=== PATIENT | male | born 1985 | race Caucasian/White ===

== ENCOUNTER 2016-12-05 16:38 | Observation (INO) | payer OTHER, MEDICAID ==
[~2016-12-05] VITALS: Ht 170.2 cm; Wt 63.9 kg
[2016-12-05] VITALS (10 sets, daily range): BP systolic 100–139; BP diastolic 73–91; PULSE 62–113; RESP 10–34; TEMP 97.1–97.7; O2SAT 95–100
[~2016-12-05 16:38] MED LIST: IBUP-232 PO
[2016-12-05] MEDS ORDERED: SODIUM CHLOR 0.9% 1000 ML INJ 1,000 ML IV ONE (16:43)
[2016-12-05] MEDS ORDERED: NALOXONE HCL 2 MG/2 ML VIAL IVP ONE (16:45)
[2016-12-05] MEDS ORDERED: SODIUM CHLORIDE 0.9% FLUSH 10 ML FLUSH IVF PRN (16:45)
--- NOTE | 2016-12-05 16:56 | PD ---
HPI Chief Complaint: OD/ Ingestion Time Seen by Provider: 16:43 Travel History International Travel<30 days: No Contact w/Intl Traveler<30days: No Traveled to known affect area: No History of Present Illness HPI 31-year-old male patient presents to the ER brought in by a friend, apparently had told the friend that he had taken heroin and cocaine, was having agonal breathing, pale, diaphoretic. He was given Narcan in the ER and is completely awake. He denies taking any medications. Modifying Factors: None Associated Signs & Symptoms: Opiate overdose Risk Factors: None PFSH Past Medical History Diabetes: No Diminished Hearing: No Past Surgical History Other Surgery: Yes (neck biopsy) Social History Alcohol Use: No Tobacco Use: Yes (1 PPD) Substance Use: No Allergies-Medications (Allergen,Severity, Reaction): Coded Allergies: No Known Allergies (Unverified , 12/05/16) Reported Meds & Prescriptions Reported Meds & Active Scripts Active No Active Prescriptions or Reported Medications Review of Systems Except as stated in HPI: all other systems reviewed are Neg Physical Exam Narrative GENERAL: Well-developed young white male patient currently in extremities, diaphoretic, abdominal respirations, pale. SKIN: Focused skin assessment warm/diaphoretic. HEAD: Atraumatic. Normocephalic. EYES: Pupils are small, equal and round and poorly reactive to light. No scleral icterus. No injection or drainage. ENT: No nasal bleeding or discharge. Mucous membranes moist but pale. NECK: Trachea midline. No JVD. CARDIOVASCULAR: Regular rate and rhythm. No murmur appreciated. RESPIRATORY: No accessory muscle use. Clear to auscultation. Breath sounds equal bilaterally. GASTROINTESTINAL: Abdomen soft, nondistended. Hepatic and splenic margins not palpable. MUSCULOSKELETAL: No obvious deformities. No clubbing. No cyanosis. No edema. NEUROLOGICAL: Lethargic, disoriented. Unable to follow commands. Slurred speech. PSYCHIATRIC: Lethargic. Data Data Last Documented VS Vital Signs Date Time Temp Pulse Resp B/P Pulse Ox O2 Delivery O2 Flow Rate FiO2 12/05/16 17:11 104 18 130/83 100 Room Air 12/05/16 16:54 97.7 Orders Electrocardiogram (12/05/16 16:43) Complete Blood Count With Diff (12/05/16 16:43) Comprehensive Metabolic Panel (12/05/16 16:43) Urinalysis - C+S If Indicated (12/05/16 16:43) Iv Access Insert/Monitor (12/05/16 16:43) Ecg Monitoring (12/05/16 16:43) Oximetry (12/05/16 16:43) Naloxone Inj (Narcan Inj) (12/05/16 16:45) Sodium Chloride 0.9% Flush (Ns Flush) (12/05/16 16:45) Sodium Chlor 0.9% 1000 Ml Inj (Ns 1000 M (12/05/16 16:43) Drug Screen, Random Urine (12/05/16 16:43) Alcohol (Ethanol) (12/05/16 16:43) Salicylates (Aspirin) (12/05/16 16:43) Tylenol (Acetaminophen) (12/05/16 16:43) Ondansetron Inj (Zofran Inj) (12/05/16 17:45) Labs Laboratory Tests Test 12/05/16 16:45 White Blood Count 11.1 TH/MM3 Red Blood Count 5.19 MIL/MM3 Hemoglobin 15.2 GM/DL Hematocrit 44.9 % Mean Corpuscular Volume 86.5 FL Mean Corpuscular Hemoglobin 29.2 PG Mean Corpuscular Hemoglobin 33.8 % Concent Red Cell Distribution Width 12.0 % Platelet Count 362 TH/MM3 Mean Platelet Volume 7.7 FL Neutrophils (%) (Auto) 50.6 % Lymphocytes (%) (Auto) 36.9 % Monocytes (%) (Auto) 10.9 % Eosinophils (%) (Auto) 1.0 % Basophils (%) (Auto) 0.6 % Neutrophils # (Auto) 5.6 TH/MM3 Lymphocytes # (Auto) 4.1 TH/MM3 Monocytes # (Auto) 1.2 TH/MM3 Eosinophils # (Auto) 0.1 TH/MM3 Basophils # (Auto) 0.1 TH/MM3 CBC Comment DIFF FINAL Differential Comment Sodium Level 143 MEQ/L Potassium Level 3.3 MEQ/L Chloride Level 107 MEQ/L Carbon Dioxide Level 29.5 MEQ/L Anion Gap 7 MEQ/L Blood Urea Nitrogen 8 MG/DL Creatinine 1.10 MG/DL Estimat Glomerular Filtration 78 ML/MIN Rate Random Glucose 208 MG/DL Calcium Level 8.1 MG/DL Total Bilirubin 0.5 MG/DL Aspartate Amino Transf 19 U/L (AST/SGOT) Alanine Aminotransferase 23 U/L (ALT/SGPT) Alkaline Phosphatase 66 U/L Total Protein 7.4 GM/DL Albumin 3.9 GM/DL Ethyl Alcohol Level LESS THAN 3 MG/DL MDM Medical Decision Making Medical Screen Exam Complete: Yes Emergency Medical Condition: Yes Medical Record Reviewed: Yes Interpretation(s) EKG shows sinus tachycardia at rate of 110 bpm with no signs of acute ST-T changes. Laboratory Tests Test 12/05/16 16:45 White Blood Count 11.1 TH/MM3 (4.0-11.0) Monocytes (%) (Auto) 10.9 % (0.0-8.0) Monocytes # (Auto) 1.2 TH/MM3 (0-0.9) Potassium Level 3.3 MEQ/L (3.5-5.1) Estimat Glomerular Filtration 78 ML/MIN (>89) Rate Random Glucose 208 MG/DL (74-106) Calcium Level 8.1 MG/DL (8.5-10.1) Differential Diagnosis Opiate overdose versus coingestions versus dysrhythmias versus dehydration Narrative Course Patient woke up right after given Narcan. He denies taking any medications or drugs. Vital signs are stable after he was given Narcan. Lab work did not show any significant metabolic issues. There are no signs of dysrhythmias. At this point, it is uncertain what patient took and my plan would be to admit the patient as an observation since Narcan is liable to run out before whenever opiate the patient took. Case is discussed with Dr. Anderson For admission. He will need to admitted to the ICU secondary to respiratory suppression possible with this overdose. Aggregate critical care time was 20 minutes. Time to perform other separately billable procedures was not included in the critical care time. My time did not include minutes spent treating any other patients simultaneously or on activities that did not directly contribute to the patient's treatment. The services I provided to this patient were to treat and/or prevent clinically significant deterioration that could result in: Respiratory failure, I provided critical care services requiring my management, as noted below: Chart data review, documentation time, medication orders and management, vital sign assessments/reviewing monitor data, ordering and reviewing lab tests, ordering and interpreting/reviewing x-rays and diagnostic studies, care of the patient and discussion of the patient with the admitting physicians. Diagnosis Primary Impression: Opiate overdose Admitting Information Admitting Physician Requests: Admit Scripts No Active Prescriptions or Reported Meds Froylan Pelyao MD Dec 05, 2016 16:56
[2016-12-05 16:59] LABS: AUTOMATED NEUTROPHIL # 5.6 TH/MM3 (1.8-7.7); BASOPHIL # 0.1 TH/MM3 (0-0.2); BASOPHIL % 0.6 % (0.0-2.0); EOSINOPHIL # 0.1 TH/MM3 (0-0.4); HEMATOCRIT 44.9 % (39.0-51.0); HEMO FLAGS DIFF FINAL; LYMPH % 36.9 % (9.0-44.0); LYMPHOCYTE # 4.1 TH/MM3 (1.0-4.8); MEAN CELL VOLUME 86.5 FL (80.0-100.0); MEAN CORPUSCULAR HEMOGLOBIN 29.2 PG (27.0-34.0); MEAN CORPUSCULAR HGB CONC 33.8 % (32.0-36.0); MONO % 10.9 % (0.0-8.0); NEUT % 50.6 % (16.0-70.0); PLATELET COUNT 362 TH/MM3 (150-450); RED BLOOD COUNT 5.19 MIL/MM3 (4.50-5.90); WHITE BLOOD COUNT 11.1 TH/MM3 (4.0-11.0)
[2016-12-05 17:11] LABS: CHLORIDE 107 MEQ/L (98-107); POTASSIUM 3.3 MEQ/L (3.5-5.1); SODIUM (NA) 143 MEQ/L (136-145)
[2016-12-05 17:16] LABS: ANION GAP 7 MEQ/L (5-15); BICARBONATE 29.5 MEQ/L (21.0-32.0); BLOOD UREA NITROGEN 8 MG/DL (7-18)
[2016-12-05 17:19] LABS: ALT (GPT) 23 U/L (12-78); AST (GOT) 19 U/L (15-37); GLOMERULAR FILTRATION RATE 78 ML/MIN (>89)
[2016-12-05 17:21] LABS: TOTAL BILIRUBIN ADULT 0.5 MG/DL (0.2-1.0)
[2016-12-05 17:22] LABS: ALKALINE PHOSPHATASE 66 U/L (45-117)
[2016-12-05] MEDS ORDERED: ONDANSETRON HCL 4 MG/2 ML VIAL IV PUSH ONE (17:45)
[2016-12-05] MEDS ORDERED: LACTULOSE SYRUP 20 GM/30 ML CUP PO PRN (18:15)
[2016-12-05] MEDS ORDERED: ONDANSETRON HCL 4 MG/2 ML VIAL IVP PRN (18:15)
[2016-12-05] MEDS ORDERED: ACETAMINOPHEN 325 MG TAB PO PRN (18:15)
[2016-12-05] MEDS ORDERED: BISACODYL 10 MG SUPP RECTAL PRN (18:15)
[2016-12-05] MEDS ORDERED: MAGNESIUM HYDROXIDE SUSP 30 ML CUP PO PRN (18:15)
[2016-12-05] MEDS ORDERED: NALOXONE HCL 0.4 MG/ML AMP IV PRN (18:15)
[2016-12-05] MEDS ORDERED: SENNOSIDES 8.6 MG TAB PO PRN (18:15)
[2016-12-05 18:37] LABS: ACETAMINOPHEN LESS THAN 2.0 MCG/ML (10.0-30.0)
[2016-12-05] MEDS: NS + KCL 20 MEQ INJ 1,000 ML IV SCH (19:42)
[2016-12-05] MEDS: DOCUSATE SODIUM 50 MG/SENNA 8.6 MG TAB PO SCH (21:00)
[2016-12-05 21:41] LABS: BLOOD, URINE NEG (NEG); GLUCOSE,URINE NEG (NEG); KETONE, URINE NEG (NEG); NITRITE,URINE NEG (NEG); PH, URINE 5.5 (5.0-8.5)
[2016-12-05 21:49] LABS: AMPHETAMINE, URINE NEG (NEG); BARBITURATES, URINE NEG (NEG); HYALINE CAST, URINE 0-2 /lpf (RARE); URINE COLOR YELLOW (YELLW/STRAW)
[2016-12-05 21:50] LABS: COCAINE, URINE POS (NEG); COMMENT (UR) CULT NOT INDICATED; CULTURE IF INDICATED CULT NOT INDICATED; SQUAMOUS EPITHELIAL CELL URINE 0-5 /hpf (0-5); WBC, URINE 0-2 /hpf (0-5)
[2016-12-06] VITALS (17 sets, daily range): BP systolic 90–128; BP diastolic 60–85; PULSE 54–88; RESP 8–21; TEMP 98.2–98.7; O2SAT 97–99
[2016-12-06 03:31] LABS: MRSA PCR NEGATIVE (NEGATIVE); STAPH AUREUS PCR POSITIVE (NEGATIVE)
[2016-12-06] MEDS ORDERED: CHLORHEXIDINE GLUCONATE 2 % 1 PACK (2 CLOTHS)(taper/protocol) TOPICAL SCH (04:00)
[2016-12-06 04:41] LABS: AUTOMATED NEUTROPHIL # 5.8 TH/MM3 (1.8-7.7); BASOPHIL # 0.1 TH/MM3 (0-0.2); BASOPHIL % 1.1 % (0.0-2.0); EOSINOPHIL # 0.1 TH/MM3 (0-0.4); EOSINOPHIL % 1.1 % (0.0-4.0); HEMATOCRIT 39.9 % (39.0-51.0); HEMO FLAGS DIFF FINAL; LYMPH % 24.7 % (9.0-44.0); LYMPHOCYTE # 2.3 TH/MM3 (1.0-4.8); MEAN CELL VOLUME 84.3 FL (80.0-100.0); MEAN CORPUSCULAR HEMOGLOBIN 29.6 PG (27.0-34.0); MEAN CORPUSCULAR HGB CONC 35.1 % (32.0-36.0); MONO % 9.8 % (0.0-8.0); NEUT % 63.3 % (16.0-70.0); PLATELET COUNT 239 TH/MM3 (150-450); RED BLOOD COUNT 4.74 MIL/MM3 (4.50-5.90); RED CELL DISTRIBUTION WIDTH 12.1 % (11.6-17.2); WHITE BLOOD COUNT 9.2 TH/MM3 (4.0-11.0)
[2016-12-06 04:58] LABS: POTASSIUM 3.7 MEQ/L (3.5-5.1)
[2016-12-06] MEDS: NS + KCL 20 MEQ INJ 1,000 ML IV SCH ×2 (05:00→14:46)
[2016-12-06 05:02] LABS: BICARBONATE 28.7 MEQ/L (21.0-32.0)
[2016-12-06] MEDS ORDERED: CHLORHEXIDINE GLUCONATE 2 % 1 PACK (2 CLOTHS)(extra cloths) TOPICAL PRN (05:15)
[2016-12-06] MEDS: DOCUSATE SODIUM 50 MG/SENNA 8.6 MG TAB PO SCH (08:04)
--- NOTE | 2016-12-06 08:51 | HHI.HP ---
[facility] No Primary Care Physician Admission Diagnosis opiate overdose Diagnoses: (1) Opiate overdose Diagnosis: Principal (2) Hypokalemia (3) Leukocytosis (4) Tobacco abuse (5) Polysubstance abuse Chief Complaint: Overdose Travel History International Travel<30 Days: No Contact w/Intl Traveler <30 Da: No Traveled to Known Affected Are: No History of Present Illness The patient is a 31-year-old male who was brought to the emergency department by a friend following an apparent overdose. The friend reported that the patient had taken heroin and cocaine. He was pale, diaphoretic, and having agonal breathing upon arrival. He was given Narcan in the ER and his mental status improved. His respiratory status improved as well. Currently he states that he feels like his normal self. He has no physical complaints at this time. He states the last thing he remembers is calling a friend yesterday, and then he remembers waking up in the ER. He does not know exactly what he took, but says he "had been taking Lortab and apparently took some heroin". He denies recent cocaine use. Remote marijuana use as well. Review of Systems Constitutional: DENIES: Fever, Chills, Night Sweats Eyes: DENIES: Blurred vision, Vision loss Ears, nose, mouth, throat: DENIES: Hearing loss Respiratory: DENIES: Cough, Wheezing, Sputum production, Shortness of breath Cardiovascular: DENIES: Chest pain, Palpitations, Dyspnea on Exertion, Lower Extremity Edema Gastrointestinal: DENIES: Abdominal pain, Constipation, Diarrhea, Nausea, Vomiting Genitourinary: DENIES: Urinary frequency, Urinary incontinence, Urgency, Hematuria, Dysuria, Nocturia Musculoskeletal: DENIES: Joint pain, Muscle aches Integumentary: DENIES: Pruritus, Rash Hematologic/lymphatic: DENIES: Bruising Neurologic: DENIES: Headache Past Family Social History Past Medical History Tobacco abuse Polysubstance abuse Past Surgical History Neck biopsy Reported Medications None Allergies: Coded Allergies: No Known Allergies (Unverified , 12/05/16) Family History Lymphoma Colon cancer Social History Smokes one pack per day. Denies alcohol use. Illicit drug use as documented in history of present illness. Physical Exam Vital Signs Vital Signs Date Time Temp Pulse Resp B/P Pulse Ox O2 Delivery O2 Flow Rate FiO2 12/06/16 08:00 58 14 119/85 97 12/06/16 08:00 58 12/06/16 07:15 98.2 56 16 114/79 98 12/06/16 06:04 56 19 105/66 97 12/06/16 06:00 65 12/06/16 05:04 57 12 114/77 98 12/06/16 04:04 98.3 54 8 103/74 97 12/06/16 04:00 60 12/06/16 02:04 62 17 90/60 98 12/06/16 02:00 64 12/06/16 01:04 64 13 110/76 98 12/06/16 00:04 98.7 84 14 91/80 98 12/06/16 00:00 63 12/05/16 23:04 84 10 125/81 98 12/05/16 22:04 80 17 119/73 98 12/05/16 22:00 62 12/05/16 21:04 98 34 114/91 95 12/05/16 20:01 97.7 100 28 100/78 99 12/05/16 20:00 69 12/05/16 18:45 97.1 88 12 119/85 99 12/05/16 18:33 93 18 124/77 99 Room Air 12/05/16 17:11 104 18 130/83 100 Room Air 12/05/16 16:54 98 Room Air 12/05/16 16:54 97.7 113 18 139/91 98 Room Air Physical Exam GENERAL: Well-nourished, well-developed male in no acute distress. HEENT: Normocephalic, atraumatic. Pupils equal, round and reactive. Extraocular movements intact. No scleral icterus. No injection or drainage. Oropharynx is clear. Mucous membranes are moist. CARDIOVASCULAR: Regular rate and rhythm without murmurs, gallops, or rubs. RESPIRATORY: Clear to auscultation. No wheezes, rales, or rhonchi. Breathing is non-labored. GASTROINTESTINAL: Abdomen soft, non-tender, nondistended. EXTREMITIES: No lower extremity edema. No calf tenderness. PSYCH: Alert and oriented x 3. NEURO: Cranial nerves II through XII are grossly intact. Food Service Assistant strength 5/5 in both upper extremities. Strength is 5/5 in lower extremities as well. Laboratory Laboratory Tests Test 12/05/16 12/05/16 12/05/16 12/05/16 16:30 16:45 20:29 21:30 Salicylates Level 3.3 White Blood Count 11.1 Red Blood Count 5.19 Hemoglobin 15.2 Hematocrit 44.9 Mean Corpuscular Volume 86.5 Mean Corpuscular Hemoglobin 29.2 Mean Corpuscular Hemoglobin 33.8 Concent Red Cell Distribution Width 12.0 Platelet Count 362 Mean Platelet Volume 7.7 Neutrophils (%) (Auto) 50.6 Lymphocytes (%) (Auto) 36.9 Monocytes (%) (Auto) 10.9 Eosinophils (%) (Auto) 1.0 Basophils (%) (Auto) 0.6 Neutrophils # (Auto) 5.6 Lymphocytes # (Auto) 4.1 Monocytes # (Auto) 1.2 Eosinophils # (Auto) 0.1 Basophils # (Auto) 0.1 CBC Comment DIFF FINAL Differential Comment Sodium Level 143 Potassium Level 3.3 Chloride Level 107 Carbon Dioxide Level 29.5 Anion Gap 7 Blood Urea Nitrogen 8 Creatinine 1.10 Estimat Glomerular Filtration 78 Rate Random Glucose 208 Calcium Level 8.1 Total Bilirubin 0.5 Aspartate Amino Transf 19 (AST/SGOT) Alanine Aminotransferase 23 (ALT/SGPT) Alkaline Phosphatase 66 Total Protein 7.4 Albumin 3.9 Acetaminophen Level LESS THAN 2.0 Ethyl Alcohol Level LESS THAN 3 Nasal Screen MRSA (PCR) NEGATIVE Staphylococcus aureus POSITIVE (PCR)(LAB) Urine Color YELLOW Urine Turbidity CLEAR Urine pH 5.5 Urine Specific [place] 1.010 Urine Protein NEG Urine Glucose (UA) NEG Urine Ketones NEG Urine Occult Blood NEG Urine Nitrite NEG Urine Bilirubin NEG Urine Leukocyte Esterase NEG Urine WBC 0-2 Urine Squamous Epithelial 0-5 Cells Urine Hyaline Casts 0-2 Microscopic Urinalysis Comment CULT NOT INDICATED Urine Opiates Screen POS Urine Barbiturates Screen NEG Urine Amphetamines Screen NEG Urine Benzodiazepines Screen NEG Urine Cocaine Screen POS Urine Cannabinoids Screen NEG Test 12/06/16 04:32 White Blood Count 9.2 Red Blood Count 4.74 Hemoglobin 14.0 Hematocrit 39.9 Mean Corpuscular Volume 84.3 Mean Corpuscular Hemoglobin 29.6 Mean Corpuscular Hemoglobin 35.1 Concent Red Cell Distribution Width 12.1 Platelet Count 239 Mean Platelet Volume 7.4 Neutrophils (%) (Auto) 63.3 Lymphocytes (%) (Auto) 24.7 Monocytes (%) (Auto) 9.8 Eosinophils (%) (Auto) 1.1 Basophils (%) (Auto) 1.1 Neutrophils # (Auto) 5.8 Lymphocytes # (Auto) 2.3 Monocytes # (Auto) 0.9 Eosinophils # (Auto) 0.1 Basophils # (Auto) 0.1 CBC Comment DIFF FINAL Differential Comment Sodium Level 142 Potassium Level 3.7 Chloride Level 107 Carbon Dioxide Level 28.7 Anion Gap 6 Blood Urea Nitrogen 6 Creatinine 0.89 Estimat Glomerular Filtration 100 Rate Random Glucose 99 Calcium Level 7.6 Result Diagram: 12/06/1643112/06/16431 Assessment and Plan Assessment and Plan 1. Opiate overdose: Patient apparently took heroin. His friend reported that he also took cocaine. Urine drug screen is positive for opiates and cocaine. The patient responded quickly to Narcan in the ER. He is alert and oriented. He has been monitored overnight on telemetry. He is not requiring supplemental oxygen. 2. Tobacco abuse: Counseled to quit smoking. 3. Leukocytosis: Likely stress reaction. Resolved. 4. Hypokalemia: Resolved. 5. Polysubstance abuse: Patient was counseled extensively regarding cessation of illicit drug use. 6. DVT prophylaxis: SCDs, TRENT colin. Possible discharge home later today if patient remains asymptomatic and telemetry monitoring is unremarkable. Haroon Anderson MD Dec 06, 2016 08:51
--- NOTE | 2016-12-06 14:33 | HHI.DCPOC ---
Discharge Care Plan Diagnosis: (1) Polysubstance abuse (2) Opiate overdose (3) Tobacco abuse (4) Leukocytosis (5) Hypokalemia Goals to Promote Your Health * To prevent worsening of your condition and complications * To maintain your health at the optimal level Directions to Meet Your Goals Take your medications as prescribed Follow your dietary instruction Follow activity as directed Keep your appointments as scheduled Take your immunizations and boosters as scheduled If your symptoms worsen call your PCP, if no PCP go to Urgent Care Center or Emergency Room Smoking is Dangerous to Your Health. Avoid second hand smoke Call the 24-hour hour crisis hotline for domestic abuse at Haroon Andreson MD Dec 06, 2016 14:33
--- NOTE | 2016-12-06 15:01 | EKG ---
Date Performed: 12/05/2016 Time Performed: 16:44:09 PTAGE: 31 years EKG: SINUS TACHYCARDIA BORDERLINE LEFT AXIS DEVIATION ABNORMAL RHYTHM ECG NO PREVIOUS TRACING DOCTOR: Jitendra Shepard Interpretating Date/Time 12/06/2016 14:57:15
== END 2016-12-06 16:05 | disposition home or self-care (01) ==
LOC: PHED 16:38 → PHEDA 17:55 → PHICU 18:59
PROVIDERS: ADMIT Family Medicine; ATTEND Family Medicine
DX: T40.1X1A Poisoning by heroin, accidental (unintentional), initial encounter (principal); T40.5X1A Poisoning by cocaine, accidental (unintentional), initial encounter; F11.10 Opioid abuse, uncomplicated; F14.10 Cocaine abuse, uncomplicated; E87.6 Hypokalemia; D72.829 Elevated white blood cell count, unspecified; F17.200 Nicotine dependence, unspecified, uncomplicated
CPT/HCPCS: 80048; 80053; 80307; 81001; 85025; 87640; 87641; 93005; 96361; 96374; 96375; 99285; G0378; J2310; J2405; J3480; J7030

== ENCOUNTER 2017-12-17 22:23 | Emergency (ER) | payer SELFPAY ==
[2017-12-17 22:50] VITALS: BP 167/106; PULSE 109; RESP 18; TEMP 99.3; O2SAT 100
--- NOTE | 2017-12-18 01:14 | PD ---
HPI Chief Complaint: Psychiatric Symptoms Time Seen by Provider: 01:09 Travel History International Travel<30 days: No Contact w/Intl Traveler<30days: No Traveled to known affect area: No History of Present Illness HPI 32-year-old male presents voluntarily requesting psychiatric evaluation. Reports that he has had depression for several years which has been worsening over the past several days. He reports he recently quit his job in front of his older child is moving away. He also reports that he has been using drugs more frequently, specifically reports that he uses a variety of pills, cocaine, marijuana. Symptoms are moderate, aggravated by life stressors and drug use with no relieving factors. Reports that he has had occasional passive suicidal thoughts but no specific plan. Denies any auditory visual hallucinations. He has no other complaints at this time. [facility] Past Medical History Anxiety: Yes Depression: Yes Diabetes: No Diminished Hearing: No Immunizations Current: Yes Past Surgical History Other Surgery: Yes (neck biopsy) Social History Alcohol Use: Yes Tobacco Use: Yes (1 PPD) Substance Use: Yes (HX PILLS, COCAINE) Allergies-Medications (Allergen,Severity, Reaction): Coded Allergies: No Known Allergies (Unverified Adverse Reaction, Unknown, 12/17/17) Reported Meds & Prescriptions Reported Meds & Active Scripts Active No Active Prescriptions or Reported Medications Review of Systems Except as stated in HPI: all other systems reviewed are Neg Physical Exam Narrative GENERAL: Well-developed well-nourished male no acute distress SKIN: Warm and dry. HEAD: Atraumatic. Normocephalic. EYES: Pupils equal and round. No scleral icterus. No injection or drainage. ENT: No nasal bleeding or discharge. Mucous membranes pink and moist. NECK: Trachea midline. No JVD. CARDIOVASCULAR: Regular rate and rhythm. No murmur appreciated. RESPIRATORY: No accessory muscle use. Clear to auscultation. Breath sounds equal bilaterally. GASTROINTESTINAL: Abdomen soft, non-tender, nondistended. Hepatic and splenic margins not palpable. MUSCULOSKELETAL: No obvious deformities. No clubbing. No cyanosis. No edema. NEUROLOGICAL: Awake and alert. No obvious cranial nerve deficits. Motor grossly within normal limits. Normal speech. PSYCHIATRIC: Depressed mood; insight and judgment normal. Data Data Last Documented VS Vital Signs Date Time Temp Pulse Resp B/P (MAP) Pulse Ox O2 Delivery O2 Flow Rate FiO2 6/26/18 22:50 99.3 109 18 167/106 (126) 100 Room Air Orders Orders Complete Blood Count With Diff (12/18/17 01:00) Comprehensive Metabolic Panel (12/18/17 01:00) Thyroid Stimulating Hormone (12/18/17 01:00) Psych Screen (12/18/17 01:00) Drug Screen, Random Urine (12/18/17 01:00) Labs Laboratory Tests Test 12/18/17 01:22 White Blood Count 13.9 TH/MM3 Red Blood Count 5.30 MIL/MM3 Hemoglobin 15.7 GM/DL Hematocrit 44.9 % Mean Corpuscular Volume 84.8 FL Mean Corpuscular Hemoglobin 29.7 PG Mean Corpuscular Hemoglobin Concent 35.0 % Red Cell Distribution Width 12.6 % Platelet Count 276 TH/MM3 Mean Platelet Volume 8.4 FL Neutrophils (%) (Auto) 78.4 % Lymphocytes (%) (Auto) 14.6 % Monocytes (%) (Auto) 6.2 % Eosinophils (%) (Auto) 0.3 % Basophils (%) (Auto) 0.5 % Neutrophils # (Auto) 10.9 TH/MM3 Lymphocytes # (Auto) 2.0 TH/MM3 Monocytes # (Auto) 0.9 TH/MM3 Eosinophils # (Auto) 0.0 TH/MM3 Basophils # (Auto) 0.1 TH/MM3 CBC Comment DIFF FINAL Differential Comment Blood Urea Nitrogen 8 MG/DL Creatinine 1.01 MG/DL Random Glucose 96 MG/DL Total Protein 7.1 GM/DL Albumin 4.0 GM/DL Calcium Level 8.7 MG/DL Alkaline Phosphatase 56 U/L Aspartate Amino Transf (AST/SGOT) 9 U/L Alanine Aminotransferase (ALT/SGPT) 12 U/L Total Bilirubin 0.5 MG/DL Sodium Level 144 MEQ/L Potassium Level 3.7 MEQ/L Chloride Level 110 MEQ/L Carbon Dioxide Level 26.7 MEQ/L Anion Gap 7 MEQ/L Estimat Glomerular Filtration Rate 86 ML/MIN Thyroid Stimulating Hormone 3rd Gen 2.310 uIU/ML Urine Opiates Screen NEG Urine Barbiturates Screen NEG Urine Amphetamines Screen NEG Urine Benzodiazepines Screen NEG Urine Cocaine Screen NEG Urine Cannabinoids Screen POS MDM Medical Decision Making Medical Screen Exam Complete: Yes Emergency Medical Condition: Yes Medical Record Reviewed: Yes Differential Diagnosis Major depressive disorder, acute psychosis, adjustment reaction, substance- induced mood disorder Narrative Course 32-year-old male presents voluntarily for psychiatric evaluation of depression and passive suicidal thoughts. Mental health screening discussed with the patient. Psychiatric screen ordered. Lab work has been reviewed, drug screen is positive for cannabinoids. The patient is medically cleared for psychiatric disposition. Diagnosis Primary Impression: Medical clearance for psychiatric admission Scripts No Active Prescriptions or Reported Meds Paolo Bernstein Dec 18, 2017 01:14
[2017-12-18 01:53] LABS: ALT (GPT) 12 U/L (12-78); AST (GOT) 9 U/L (15-37); BICARBONATE 26.7 MEQ/L (21.0-32.0); BLOOD UREA NITROGEN 8 MG/DL (7-18); CALCIUM 8.7 MG/DL (8.5-10.1); CHLORIDE 110 MEQ/L (98-107); CREATININE 1.01 MG/DL (0.60-1.30); GLOMERULAR FILTRATION RATE 86 ML/MIN (>89); GLUCOSE,RANDOM 96 MG/DL (74-106); SODIUM (NA) 144 MEQ/L (136-145)
[2017-12-18 02:00] LABS: AUTOMATED NEUTROPHIL # 10.9 TH/MM3 (1.8-7.7); BASOPHIL # 0.1 TH/MM3 (0-0.2); BASOPHIL % 0.5 % (0.0-2.0); EOSINOPHIL % 0.3 % (0.0-4.0); HEMATOCRIT 44.9 % (39.0-51.0); HEMOGLOBIN 15.7 GM/DL (13.0-17.0); LYMPH % 14.6 % (9.0-44.0); MEAN CELL VOLUME 84.8 FL (80.0-100.0); MEAN CORPUSCULAR HEMOGLOBIN 29.7 PG (27.0-34.0); MEAN PLATELET VOLUME 8.4 FL (7.0-11.0); MONO % 6.2 % (0.0-8.0); MONOCYTE # 0.9 TH/MM3 (0-0.9); NEUT % 78.4 % (16.0-70.0); PLATELET COUNT 276 TH/MM3 (150-450); RED CELL DISTRIBUTION WIDTH 12.6 % (11.6-17.2); WHITE BLOOD COUNT 13.9 TH/MM3 (4.0-11.0)
[2017-12-18 02:03] LABS: ALKALINE PHOSPHATASE 56 U/L (45-117); TOTAL BILIRUBIN ADULT 0.5 MG/DL (0.2-1.0); TOTAL PROTEIN 7.1 GM/DL (6.4-8.2)
--- NOTE | 2017-12-18 09:43 | PD ---
Physical Exam Date Seen by Provider: Dec 18, 2017 Time Seen by Provider: 09:44 Data Data Last Documented VS Vital Signs Date Time Temp Pulse Resp B/P (MAP) Pulse Ox O2 Delivery O2 Flow Rate FiO2 12/18/17 09:45 90 20 145/68 (93) 97 12/17/17 22:50 99.3 Room Air Orders Orders Complete Blood Count With Diff (12/18/17 01:00) Comprehensive Metabolic Panel (12/18/17 01:00) Thyroid Stimulating Hormone (12/18/17 01:00) Psych Screen (12/18/17 01:00) Drug Screen, Random Urine (12/18/17 01:00) Diet Regular Basic (12/18/17 Breakfast) Ed Discharge Order (12/18/17 09:43) Labs Laboratory Tests Test 12/18/17 01:22 White Blood Count 13.9 TH/MM3 Red Blood Count 5.30 MIL/MM3 Hemoglobin 15.7 GM/DL Hematocrit 44.9 % Mean Corpuscular Volume 84.8 FL Mean Corpuscular Hemoglobin 29.7 PG Mean Corpuscular Hemoglobin Concent 35.0 % Red Cell Distribution Width 12.6 % Platelet Count 276 TH/MM3 Mean Platelet Volume 8.4 FL Neutrophils (%) (Auto) 78.4 % Lymphocytes (%) (Auto) 14.6 % Monocytes (%) (Auto) 6.2 % Eosinophils (%) (Auto) 0.3 % Basophils (%) (Auto) 0.5 % Neutrophils # (Auto) 10.9 TH/MM3 Lymphocytes # (Auto) 2.0 TH/MM3 Monocytes # (Auto) 0.9 TH/MM3 Eosinophils # (Auto) 0.0 TH/MM3 Basophils # (Auto) 0.1 TH/MM3 CBC Comment DIFF FINAL Differential Comment Blood Urea Nitrogen 8 MG/DL Creatinine 1.01 MG/DL Random Glucose 96 MG/DL Total Protein 7.1 GM/DL Albumin 4.0 GM/DL Calcium Level 8.7 MG/DL Alkaline Phosphatase 56 U/L Aspartate Amino Transf (AST/SGOT) 9 U/L Alanine Aminotransferase (ALT/SGPT) 12 U/L Total Bilirubin 0.5 MG/DL Sodium Level 144 MEQ/L Potassium Level 3.7 MEQ/L Chloride Level 110 MEQ/L Carbon Dioxide Level 26.7 MEQ/L Anion Gap 7 MEQ/L Estimat Glomerular Filtration Rate 86 ML/MIN Thyroid Stimulating Hormone 3rd Gen 2.310 uIU/ML Urine Opiates Screen NEG Urine Barbiturates Screen NEG Urine Amphetamines Screen NEG Urine Benzodiazepines Screen NEG Urine Cocaine Screen NEG Urine Cannabinoids Screen POS MDM Supervised Visit with JAMES: No Narrative Course 32-year-old male presents the ED for evaluation of depressed mood. Patient was initially evaluated by Paolo Bernstein and medically cleared. Psychiatric case management was able to arrange [facility] evaluation for inpatient treatment. Patient' s agreeable with the plan for transport to [facility]. Transport was arranged directly to the facility. He is stable and discharged. Diagnosis Primary Impression: Medical clearance for psychiatric admission Additional Impression: Depressed mood Referrals: [facility] Additional Instruction: Follow up at [facility] as discussed. Return to the ED for any urgent or emergent medical condition. Scripts No Active Prescriptions or Reported Meds Disposition: 01 DISCHARGE HOME Condition: Stable Margot Boss Dec 18, 2017 09:43
[2017-12-18 09:45] VITALS: BP 145/68
== END 2017-12-18 10:27 | disposition home or self-care (01) ==
LOC: NEPD 22:23
DX: F32.9 Major depressive disorder, single episode, unspecified (principal); R45.851 Suicidal ideations; F41.8 Other specified anxiety disorders; F17.210 Nicotine dependence, cigarettes, uncomplicated; F12.90 Cannabis use, unspecified, uncomplicated; F14.90 Cocaine use, unspecified, uncomplicated
CPT/HCPCS: 80053; 80307; 84443; 85025; 99283